=== PATIENT | female | born 1985 | race Caucasian/White ===

== ENCOUNTER 2017-06-04 15:07 | Emergency (ER) | payer OTHER ==
[~2017-06-04] VITALS: Ht 165.1 cm; Wt 113.4 kg
[2017-06-04 15:48] VITALS: BP 131/73
[2017-06-04] MEDS ORDERED: SODIUM CHLORIDE 0.9% 1,000 ML IV ONE (16:33)
[2017-06-04 16:40] LABS: Urine WBC None Seen /hpf (0 - 5)
[2017-06-04] MEDS ORDERED: KETOROLAC TROMETH 30 MG/ML 1ML VIAL IV ONE (16:45)
[2017-06-04 17:02] LABS: Basophils # (auto) 0 uL; Basophils % (auto) 0.3 % (0.0-2.0); Eosinophils # (auto) 0.1 uL; Eosinophils % (auto) 1.5 % (0.0-7.0); Hematocrit 41.7 % (36.0-46.0); Hemoglobin 14.1 g/dL (12.2-16.2); Lymphocytes % (auto) 20.8 % (10.0-50.0); Mean Corpuscular Hemoglobin 29.4 pg (28.0-32.0); Mean Corpuscular Volume 86.5 fL (80.0-100.0); Monocytes # (auto) 0.4 uL; Monocytes % (auto) 4.6 % (0.0-12.0); Neutrophils # (auto) 7.1 uL; Neutrophils % (auto) 72.8 % (37.0-80.0); Nucleated Red Blood Cells % 0.1 %; Platelet Count (auto) 294 10^3/uL (140-450); Red Blood Cells 4.82 10^6/uL (4.0-5.20); Red Cell Distribution Width 13.6 % (11.8-14.3); White Blood Cell 9.8 10^3/uL (4.4-10.8)
[2017-06-04 17:07] LABS: Anion Gap 10 (5-15); BUN/Creatinine Ratio 17.7; Blood Urea Nitrogen 14 mg/dL (7-18); Calcium 9.3 mg/dL (8.5-10.1); Carbon Dioxide 25 mmol/L (21-32); Chloride 106 mmol/L (98-107); GFR African American 108 mL/min; GFR Non-African American 90 mL/min; Glucose 91 mg/dL (74-106); Potassium 3.7 mmol/L (3.5-5.1); Sodium 141 mmol/L (136-145)
[2017-06-04 17:11] LABS: Urine Bacteria FEW /hpf (None Seen); Urine Blood 1+ /uL (Negative); Urine Specific Gravity 1.009 (1.001-1.035)
== END 2017-06-04 18:16 | disposition home or self-care (01) ==
LOC: ER 15:14
DX: T75.4XXA Electrocution, initial encounter (principal); W86.8XXA Exposure to other electric current, initial encounter; Y93.89 Activity, other specified; Y99.8 Other external cause status; Y92.89 Other specified places as the place of occurrence of the external cause
CPT/HCPCS: 36415; 80048; 81001; 84484; 85025; 93005; 94761; 96361; 96374; 99285; J1885; J7030